=== PATIENT | female | born 1985 | race American Indian/Alaskan Native ===

== ENCOUNTER 2019-02-22 17:52 | Emergency (ER) | payer SELFPAY ==
[2019-02-22 18:50] VITALS: BP 125/65
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
--- NOTE | 2019-02-22 20:25 | XRay Report ---
PROCEDURE: XR FINGER(S) 2+V RT TECHNIQUE: Frontal view right hand and oblique and lateral views right fifth finger HISTORY: right 5th digit injury COMPARISONS: None FINDINGS: There is a persistent flexion deformity of the fifth finger at the level of the DIP. There is no evidence of fracture or subluxation. There appears to be soft tissue swelling of the mid and distal aspect of the fifth finger. IMPRESSION: 1. Appearance of fixed flexion deformity fifth finger at the level of the DIP. 2. No evidence of fracture or subluxation. Referral to orthopedics would be helpful for further evaluation. If further imaging is required, MRI may be helpful. This document is electronically signed by Daisy Zamarripa MD., Feb 22 2019 08:23:44 PM ET
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
== END 2019-02-22 21:28 | disposition home or self-care (01) ==
LOC: ED 17:52
DX: M20.011 Mallet finger of right finger(s) (principal); F17.200 Nicotine dependence, unspecified, uncomplicated
CPT/HCPCS: 99283